=== PATIENT | male | born 1950 | race Caucasian/White ===

== ENCOUNTER 2018-09-11 00:27 | Day surgery (SDC) | payer MEDICARE, OTHER ==
--- NOTE | 2018-09-10 23:41 | LEVENE H&P ---
DATE OF ADMISSION: September 11, 2018 IDENTIFICATION/CHIEF COMPLAINT Abhishek is a 68-year-old gentleman with a chief complaint of left knee pain, swelling, and mechanical symptoms. HISTORY OF PRESENT ILLNESS Patient has had refractory knee symptoms that have failed to respond to conservative care. MRI demonstrates unstable medial meniscal tear as well as a focal defect in the lateral femoral condyle articular cartilage. Surgery is indicated to relieve symptoms after failure of nonoperative measures. PAST MEDICAL HISTORY Notable for: 1. Hypertension, controlled on medication. 2. Enlarged prostate. 3. Remote history of liver cancer. PAST SURGICAL HISTORY Notable for: 1. Hernia repair. 2. Treatment of detached retina. 3. Hemorrhoidectomy. FAMILY HISTORY Noncontributory. SOCIAL HISTORY Negative for tobacco and alcohol use. REVIEW OF SYSTEMS Negative. ALLERGIES ASPIRIN, which causes hives. CURRENT MEDICATIONS 1. Finasteride 5 mg p.o. daily. 2. Amlodipine 5 mg p.o. daily. 3. Losartan 50 mg p.o. daily. 4. Furosemide 20 mg p.o. daily. 5. Tamsulosin 0.4 mg p.o. daily. 6. A monthly B12 shot. PHYSICAL EXAMINATION GENERAL: This is a well-developed, well-nourished male who appears stated age. HEENT: Normocephalic, atraumatic. NECK: Supple. LUNGS: Clear. HEART: Regular. ABDOMEN: Soft. ORTHOPEDIC: Left knee has an effusion. He is tender at the medial joint line. McBurney's positive. Knee is stable. Extensor function is intact. Radiographs demonstrate minimal joint space narrowing. MRI demonstrates medial meniscal tear as well as focal lateral femoral condyle chondral defect. ASSESSMENT Left knee medial meniscal tear and a chondral defect refractory to conservative care. PLAN I discussed the options with Abhishek, including ongoing conservative care with therapy and home exercise, diet, avoidance of provocative activities, and medication or injection versus the option of proceeding with knee arthroscopy. He would like to go ahead and proceed with the knee scope. This consists of arthroscopic partial medial meniscectomy, possible incidental microfracture of the chondral defect in the lateral femur. Nature of the procedure, risks, benefits, and anticipated rehab course were reviewed. Risks include but are not limited to , major medical or anesthetic complication, infection, neurovascular injury, persistent or recurrent symptoms, progressive arthritis, need for future surgery, and other unforeseen. He understands and wishes to proceed. Signed permit is placed in the chart. No guarantees are given or implied. SANDIP
[~2018-09-11] VITALS: Ht 171.4 cm; Wt 83.5 kg
[2018-09-11] VITALS (7 sets, daily range): BP systolic 120–140; BP diastolic 78–90
[~2018-09-11 00:27] MED LIST: AMLO-111 PO; CELECOXIB 200 MG CAP PO ONE; COMODPT OD; EVER10TA PO; FAMOTIDINE 20 MG TAB PO ONE; FINA5TAB67 PO; FURO-45 PO; LIDOCAINE/SOD BICARB 8.4% SYR ID ONE; LOSA50TA80 PO; MIDAZOLAM 2 MG/2 ML VIAL IVP PRN; NORMOSOL R SOLN(*) 1000 ML BAG 1,000 ML IV PRN; OCTR10VI3 IM; POTA-53 PO; PRED5DRO3 OS; TAMS0.4C70 PO; ceFAZolin(*) 2GM/D5W 50ML 50 ML IVPB ONE
[2018-09-11] MEDS ORDERED: MIDAZOLAM 2 MG/2 ML VIAL IVP PRN (06:15)
[2018-09-11] MEDS ORDERED: ceFAZolin(*) 2GM/D5W 50ML 50 ML IVPB ONE (06:15)
[2018-09-11] MEDS ORDERED: NORMOSOL R SOLN(*) 1000 ML BAG 1,000 ML IV PRN (06:15)
[2018-09-11] MEDS ORDERED: LIDOCAINE/SOD BICARB 8.4% SYR ID ONE (06:15)
[2018-09-11] MEDS ORDERED: FAMOTIDINE 20 MG TAB PO ONE (06:15)
[2018-09-11] MEDS ORDERED: MORPHINE 10 MG/ML SYR ONE (06:35)
[2018-09-11] MEDS ORDERED: ROPIVACAINE 0.2% 20 ML VIAL ONE (06:35)
[2018-09-11] MEDS ORDERED: ONDANSETRON 4 MG/2 ML VIAL ONE (07:09)
[2018-09-11] MEDS ORDERED: DEXAMETHASONE SOD PHOS 10MG/ML ONE (07:09)
[2018-09-11] MEDS ORDERED: PROPOFOL EMUL(*) 10MG/ML 20 ML 20 ML ONE (07:09)
[2018-09-11] MEDS ORDERED: fentaNYL CITR 100 MCG/2 ML AMP ONE (07:10)
[2018-09-11] MEDS ORDERED: KETOROLAC 30 MG/ML VIAL ONE (08:33)
--- NOTE | 2018-09-11 13:53 | OPERATIVE REPORT 1 ---
EVENT DATE: September 11, 2018 SURGEON: Ventura Pineda MD ANESTHESIOLOGIST: Danny De Luna MD ANESTHESIA: General. EDGING SUPERVISOR: Jose M Cortez PA-C PREOPERATIVE DIAGNOSIS Left knee medial meniscal tear, lateral femoral condyle, focal chondral defect. POSTOPERATIVE DIAGNOSIS Left knee medial meniscal tear, lateral femoral condyle, focal chondral defect with additional finding of posterior root lateral meniscal tear and focal grade 4 chondral defect at the lower portion of the trochlear groove. PROCEDURE PERFORMED Left knee arthroscopic partial medial and lateral meniscectomies and incidental trochlear microfracture. ESTIMATED BLOOD LOSS Minimal. DRAINS None. SPECIMENS None. COMPLICATIONS None apparent. TOURNIQUET TIME Zero. INDICATIONS Abhishek has had refractory pain in his knee, mostly medial, as well as swelling and mechanical issues that have failed to respond to prolonged conservative care. Surgery is indicated to relieve symptoms after failure of nonoperative measures. DESCRIPTION OF PROCEDURE The patient was taken to the operating room and placed supine on the operating table. General anesthesia was induced. Antibiotics were administered IV. The left lower extremity was prepped and draped in the usual sterile fashion for knee arthroscopy. A standard portal was created. Blunt trocar and arthroscopic cannula were used to enter the joint. Lactated ringers were infused by pump through the scope sheath. A supermedial Veress needle was placed for outflow. A probe was introduced and a complete diagnostic arthroscopy was performed. Suprapatellar pouch was mildly synovitic; otherwise normal. Medial and lateral gutters were similar with a bit of loose chondral debris and some synovitis. The patellofemoral articularis was notable for diffuse grade 2 malacia on the patella. No unstable flaps. Trochlear groove had diffuse grade 2 to 3 changes in the central aspect with a focal grade 4 patch in the bottom. This area was cleaned up with a curette and shaver and a microfracture awl was used to perforate the subchondral plate at regular 3 mm intervals to allow extravasation of fat and mural elements to form a patch, revealing regenerate cartilage in this region. The medial compartment was notable for a complex tear of the posterior horn extending to the body of the medial meniscus. There were significant unstable flaps and underfold of fragments. This was deep and approached the meniscocapsular junction and the posterior horn body junction. Forceps and arthroscopic shaver were used to debride the meniscus back to stable margin, confirmed by probing. There was an intact peripheral rim. There was minimal grade 2 malacia in this compartment. No unstable chondral defect. The notch had normal ACL and PCL. Lateral compartment was notable for a regular shredded tear of the posterior root of the lateral meniscus. This was debrided with the shaver. There was good attachment down to the bony root attachment and a minimal meniscal loss here. There was also about a 10 x 20 grade 3 to 4 chondral defect. There were some irregular flaps at the margin, which were debrided. Due to the size and irregularity of this lesion, though, I elected not to perform a microfracture as I felt this would be contraindicated. The tibial plateau was in good condition. Loose debris was subsequently cleared from the joint with suction. Portals were closed with 4-0 Monocryl subcuticular suture. The knee was instilled with morphine and Marcaine for postoperative analgesia. Xeroform was applied, followed by a dry, sterile dressing and a compression wrap. Patient was awakened from anesthesia and taken to recovery room in stable condition, having tolerated the procedure well. PLAN Standard post-scope rehab on a self-directed basis. SANDIP
== END 2018-09-11 08:55 | disposition home or self-care (01) ==
LOC: OR 00:27
PROVIDERS: ATTEND Orthopaedic Surgery
DX: S83.242A Other tear of medial meniscus, current injury, left knee, initial encounter (principal); S83.282A Other tear of lateral meniscus, current injury, left knee, initial encounter; S83.32XA Tear of articular cartilage of left knee, current, initial encounter
CPT/HCPCS: 29883; A9270; J1100; J1885; J2405; J2704; J2795; J3010; J0690; J2270